=== PATIENT | female | born 1985 | race African-American/Black ===

== ENCOUNTER 2016-04-03 11:19 | Emergency (ER) | payer OTHER ==
[~2016-04-03] VITALS: Ht 149.9 cm; Wt 44.9 kg
[~2016-04-03 11:19] MED LIST: BACTRIM DS TAB1 EACH PO; CIPRO500 MG PO; CIPROFLOXACIN500 M1 PO; CYCLOBENZAPRINE5 MG PO; IBUPROFEN 600600 M1 PO; NAPROSYN500 MG PO; NOHOMEMEDICATIONS; NORCO 5-325 TA1 EACH PO; PREDNISONE 20 M20 MG PO; TRAMADOL 50 MG50 MG PO
[2016-04-03 12:30] LABS: URINE BILIRUBIN NEGATIVE (Negative); URINE BLOOD TRACE (Negative); URINE COLOR YELLOW; URINE GLUCOSE-RANDOM* NEGATIVE (Negative); URINE KETONES NEGATIVE (Negative); URINE LEUKOCYTES-REFLEX NEGATIVE (Negative); URINE PROTEIN (DIPSTICK) NEGATIVE (Negative); URINE SPECIFIC GRAVITY 1.025 (1.003-1.035); URINE UROBILINOGEN 0.2 E.U./dl (0.2-1.0)
[2016-04-03] MEDS ORDERED: IBUPROFEN 800800 MG PO (13:43)
[2016-04-03] MEDS ORDERED: NORCO 5-325 TA1 EACH PO (13:43)
[2016-04-03 14:07] VITALS: BP 113/77
== END 2016-04-03 14:07 | disposition home or self-care (01) ==
LOC: ER 11:19
PROVIDERS: Emergency Medicine
DX: M54.5 Low back pain (principal); J45.909 Unspecified asthma, uncomplicated